=== PATIENT | male | born 1990 | race Caucasian/White ===

== ENCOUNTER 2021-06-11 02:21 | Emergency (ER) | payer SELFPAY ==
[~2021-06-11] VITALS: Ht 170.2 cm; Wt 68.0 kg
--- NOTE | 2021-06-11 02:35 | NUR ---
PT AAOX4. BIBRA 76 AND [employer] FOR OPIATE OVERDOSE PER EMS POSSIBLE FENTANYL OD. PLACED IN BED 10 ON NURSE COMPANION AND PULSE OX. VSS. NO ACUTE DISTRESS NOTED. ER MD AT BEDSIDE FOR EVAL. AWAITING ORDERS.
--- NOTE | 2021-06-11 02:40 | NUR ---
HAND CANDY MOLDER AT BEDSIDE FOR BLOOD DRAW.
[2021-06-11 02:46] LABS: BASOPHILS % (AUTO) 0.4 % (0.0-2.0); EOSINOPHILS % (AUTO) 1.6 % (0.0-6.0); HEMATOCRIT 43 % (39-51); HEMOGLOBIN 14.3 g/dL (13.5-17.5); LYMPHOCYTES % (AUTO) 33.4 % (20.0-44.0); MEAN CORPUSCULAR HGB CONC 34 g/dl (31.0-36.0); MEAN CORPUSCULAR VOLUME 87 fL (80-96); MONOCYTES # (AUTO) 0.3 K/uL (0.1-1.30); MONOCYTES % (AUTO) 4.7 % (2.0-12.0); NEUTROPHILS # (AUTO) 3.6 K/uL (1.8-8.9); NEUTROPHILS % (AUTO) 59.9 % (43.0-81.0); PLATELET COUNT (AUTO) 193 K/uL (150-450); RED BLOOD CELL COUNT(AUTO) 4.92 MIL/uL (4.5-6.0)
[2021-06-11 02:47] LABS: CALCIUM, SERUM 8.7 mg/dL (8.5-10.1); CARBON DIOXIDE 28 mmol/L (21-32); CHLORIDE 101 mmol/L (98-107); GLUCOSE 195 mg/dL (74-106); POTASSIUM 4.2 mmol/L (3.5-5.1); SODIUM SERUM 139 mmol/L (136-145); UREA NITROGEN, BLOOD 10 mg/dL (7-18)
[2021-06-11 02:53] LABS: ALANINE AMINOTRANSFERASE 68 U/L (12-78); ALBUMIN 3.5 g/dL (3.4-5.0); ALCOHOL, BLOOD < 3 mg/dL (0-0); ALKALINE PHOSPHATASE 99 U/L (46-116); ASPARTATE AMINOTRANSFERASE 58 U/L (15-37); BILIRUBIN,DIRECT 0.1 mg/dL (0.0-0.2); BILIRUBIN,TOTAL 0.4 mg/dL (0.2-1.0)
[2021-06-11 02:54] LABS: ACETAMINOPHEN < 0 ug/ml (10-30)
--- NOTE | 2021-06-11 03:53 | NUR ---
PT STATED UNABLE TO PROVIDE URINE SAMPLE, WILL TRY
--- NOTE | 2021-06-11 05:13 | NUR ---
IV removed. Catheter intact and site benign. Pressure and 4x4 applied to site. No bleeding noted.
--- NOTE | 2021-06-11 05:13 | NUR ---
Patient discharged to home in stable condition. Written and verbal after care instructions given. Patient verbalizes understanding of instruction. Pt ambulated out of ED. VSS.
[2021-06-11 05:14] VITALS: BP 111/72
== END 2021-06-11 05:14 | disposition home or self-care (01) ==
LOC: ER 02:23
DX: T40.601A Poisoning by unspecified narcotics, accidental (unintentional), initial encounter (principal); F17.200 Nicotine dependence, unspecified, uncomplicated; R00.0 Tachycardia, unspecified; Y92.89 Other specified places as the place of occurrence of the external cause
CPT/HCPCS: 36415; 80048-TC; 80076-TC; 82962-TC; 85025-TC; G0480

== ENCOUNTER 2021-07-16 13:04 | Emergency (ER) | payer SELFPAY ==
[~2021-07-16] VITALS: Ht 170.2 cm; Wt 63.5 kg
[2021-07-16] MEDS ORDERED: IV NS 0.9% 1,000 ML BAG IV ONE (13:30)
--- NOTE | 2021-07-16 13:30 | NUR ---
placed on jukebox operator
--- NOTE | 2021-07-16 13:30 | NUR ---
labs drawn - sent to lab
[2021-07-16 13:32] LABS: BASOPHILS % (AUTO) 0.1 % (0.0-2.0); EOSINOPHILS % (AUTO) 0.1 % (0.0-6.0); HEMATOCRIT 49 % (39-51); HEMOGLOBIN 16.3 g/dL (13.5-17.5); LYMPHOCYTES # (AUTO) 1.6 K/uL (0.8-4.8); LYMPHOCYTES % (AUTO) 11.4 % (20.0-44.0); MEAN CORPUSCULAR HGB CONC 34 g/dl (31.0-36.0); MEAN CORPUSCULAR VOLUME 84 fL (80-96); MONOCYTES # (AUTO) 0.9 K/uL (0.1-1.30); MONOCYTES % (AUTO) 6.2 % (2.0-12.0); NEUTROPHILS # (AUTO) 11.8 K/uL (1.8-8.9); NEUTROPHILS % (AUTO) 82.2 % (43.0-81.0); PLATELET COUNT (AUTO) 294 K/uL (150-450); RED BLOOD CELL COUNT(AUTO) 5.77 MIL/uL (4.5-6.0); WHITE BLOOD COUNT (AUTO) 14.4 K/uL (4.3-11.0)
--- NOTE | 2021-07-16 13:32 | NUR ---
IVF fluids given as ordered
[2021-07-16 13:47] LABS: CALCIUM, SERUM 9.3 mg/dL (8.5-10.1); CARBON DIOXIDE 17 mmol/L (21-32); CHLORIDE 100 mmol/L (98-107); CREATININE 1.2 mg/dL (0.6-1.3); GLUCOSE 113 mg/dL (74-106); POTASSIUM 3.8 mmol/L (3.5-5.1); SODIUM SERUM 138 mmol/L (136-145); UREA NITROGEN, BLOOD 15 mg/dL (7-18)
[2021-07-16 13:53] LABS: ALANINE AMINOTRANSFERASE 39 U/L (12-78); ALBUMIN 3.9 g/dL (3.4-5.0); ALCOHOL, BLOOD < 3 mg/dL (0-0); ALKALINE PHOSPHATASE 96 U/L (46-116); ASPARTATE AMINOTRANSFERASE 16 U/L (15-37); BILIRUBIN,DIRECT 0.1 mg/dL (0.0-0.2); BILIRUBIN,TOTAL 0.4 mg/dL (0.2-1.0); TOTAL PROTEIN, SERUM 8.2 g/dL (6.4-8.2)
--- NOTE | 2021-07-16 15:15 | NUR ---
DAD CALLED SAYING THAT VILMA,SISTER IS COMING TO TAKE HIM TO REHAB OR DAD CAN ARRANGE A RIDE IF HE WANTS TO LEAVE EARLIER,PATIENT INFORMED AND AGGREED TO WAIT
[2021-07-16 15:32] VITALS: BP 116/67
--- NOTE | 2021-07-16 15:32 | NUR ---
Patient discharged to home in stable condition. Written and verbal after care instructions given. Patient verbalizes understanding of instruction. The sister picking up the patient.
== END 2021-07-16 15:32 | disposition home or self-care (01) ==
LOC: ER 13:07
DX: R56.9 Unspecified convulsions (principal); R00.0 Tachycardia, unspecified; F17.200 Nicotine dependence, unspecified, uncomplicated
CPT/HCPCS: 36415; 70450; 80048; 80076; 80320; 85025; 93005; 96360; 99285; J7030; G0480